=== PATIENT | female | born 1955 | race Caucasian/White ===

== ENCOUNTER 2017-11-11 18:39 | Inpatient (IN) | payer SELFPAY ==
[~2017-11-11] VITALS: Ht 160 cm; Wt 79.9 kg
[2017-11-11] VITALS (18 sets, daily range): BP systolic 83–172; BP diastolic 43–85; PULSE 50–82; RESP 10–18; TEMP 99.2; O2SAT 86–99
[~2017-11-11 18:39] MED LIST: ATEN-100 PO; CLON.1 PO; ESTR1TAB12 PO; LISI10TA PO
[2017-11-11] MEDS ORDERED: HYDROmorphone HCL PF 2 MG/ML VIAL IV PUSH ONE (19:00)
[2017-11-11] MEDS ORDERED: ONDANSETRON HCL 4 MG/2 ML VIAL IV PUSH ONE (19:00)
[2017-11-11] MEDS ORDERED: SODIUM CHLOR 0.9% 1000 ML INJ 1,000 ML IV SCH (19:00)
[2017-11-11] MEDS ORDERED: ESTR1TAB PO (19:02)
[2017-11-11] MEDS ORDERED: LISI-515 PO (19:02)
[2017-11-11] MEDS ORDERED: MEDR2.5 PO (19:02)
[2017-11-11] MEDS ORDERED: TRIA37.5 PO (19:02)
--- NOTE | 2017-11-11 19:02 | PD ---
HPI Chief Complaint: Chest Pain Time Seen by Provider: 18:49 Travel History International Travel<30 days: Yes Contact w/Intl Traveler<30days: Yes Name of Country Traveled to: [place] Traveled to known affect area: No History of Present Illness HPI 62-year-old female complains of chest pain and headache. Patient has history of recurrent headache and this is not new. Patient complains of chest pain started about 2 hours prior to arrival. Patient stated chest pain burning pain across the chest with radiation to the back. Patient denies any coughing congestion fever chills. Patient states that she has nausea and diaphoresis with the pain. Patient denies any palpitation. Patient has history hypertension. Patient denies history of diabetes or hyperlipidemia. Patient is a non-smoker. Patient has family history of heart disease. On a scale of 1- 10 the pain is an 8. PFSH Past Medical History Diminished Hearing: No Fibromyalgia: Yes Hypertension: Yes Menopausal: Yes Past Surgical History Section: Yes Hysterectomy: Yes (L OOPHORECTOMY) Other Surgery: Yes (MELANOMA REMOVAL, RUE LYMPHNODE REMOVAL) Social History Alcohol Use: No Tobacco Use: No Substance Use: No Allergies-Medications (Allergen,Severity, Reaction): Coded Allergies: Sulfa (Sulfonamide Antibiotics) (Unverified Allergy, Severe, HIVES, 11/11/17 ) codeine (Unverified Allergy, Severe, HIVES, 11/11/17) erythromycin base (Verified Allergy, Severe, Nausea/Vomiting, 11/11/17) hydromorphone (Verified Allergy, Severe, Respiratory Failure, 11/11/17) Reported Meds & Prescriptions Reported Meds & Active Scripts Active Reported Estradiol 1 Mg Tab 1 Mg PO DAILY Provera (Medroxyprogesterone Acetate) 2.5 Mg Tab 2.5 Mg PO DAILY Start day 16 Triamterene-Hydrochlorothiazide 37.5-25 Mg Tab 1 Tab PO DAILY Lisinopril 20 Mg Tab 20 Mg PO DAILY Review of Systems General / Constitutional: No: Fever Eyes: No: Visual changes HENT: Positive: Headaches Cardiovascular: Positive: Chest Pain or Discomfort Respiratory: No: Shortness of Breath Gastrointestinal: No: Abdominal Pain Genitourinary: No: Dysuria Musculoskeletal: No: Pain Skin: No Rash Neurologic: No: Weakness Psychiatric: No: Depression Endocrine: No: Polydipsia Hematologic/Lymphatic: No: Easy Bruising Physical Exam Narrative GENERAL: Well-nourished, well-developed patient. SKIN: Focused skin assessment warm/dry. HEAD: Normocephalic. EYES: No scleral icterus. No injection or drainage. NECK: Supple, trachea midline. No JVD or lymphadenopathy. CARDIOVASCULAR: Regular rate and rhythm without murmurs, gallops, or rubs. RESPIRATORY: Breath sounds equal bilaterally. No accessory muscle use. GASTROINTESTINAL: Abdomen soft, non-tender, nondistended. MUSCULOSKELETAL: No cyanosis, or edema. BACK: Nontender without obvious deformity. No CVA tenderness. Neurologic exam normal. Data Data Last Documented VS Vital Signs Date Time Temp Pulse Resp B/P (MAP) Pulse Ox O2 Delivery O2 Flow Rate FiO2 11/11/17 21:11 60 16 91/49 (63) 98 Nasal Cannula 2.00 11/11/17 18:55 99.2 Orders Orders Electrocardiogram (11/11/17 18:55) Complete Blood Count With Diff (11/11/17 18:55) Comprehensive Metabolic Panel (11/11/17 18:55) Creatine Kinase (Cpk) (11/11/17 18:55) Troponin I (11/11/17 18:55) Prothrombin Time / Inr (Pt) (11/11/17 18:55) Act Partial Throm Time (Ptt) (11/11/17 18:55) Lipase (11/11/17 18:55) Chest, Single Ap (11/11/17 18:55) Iv Access Insert/Monitor (11/11/17 18:55) Ecg Monitoring (11/11/17 18:55) Oximetry (11/11/17 18:55) Cta Thor Abd Aorta W Iv C W3d (11/11/17 ) Sodium Chlor 0.9% 1000 Ml Inj (Ns 1000 M (11/11/17 19:00) Hydromorphone Pf Inj (Dilaudid Pf Inj) (11/11/17 19:00) Ondansetron Inj (Zofran Inj) (11/11/17 19:00) Diphenhydramine Inj (Benadryl Inj) (11/11/17 19:30) Methylprednisolone So Succ Inj (Solumedr (11/11/17 19:30) Famotidine Inj (Pepcid Inj) (11/11/17 19:30) Sodium Chloride 0.9% Flush (Ns Flush) (11/11/17 19:30) Methylprednisolone So Succ Inj (Solumedr (11/11/17 19:26) Iohexol 350 Inj (Omnipaque 350 Inj) (11/11/17 20:24) Sodium Chlor 0.9% 1000 Ml Inj (Ns 1000 M (11/11/17 20:45) Admit Order (Ed Use Only) (11/11/17 21:10) Labs Laboratory Tests Test 11/11/17 19:11 White Blood Count 5.4 TH/MM3 Red Blood Count 4.91 MIL/MM3 Hemoglobin 13.6 GM/DL Hematocrit 41.6 % Mean Corpuscular Volume 84.6 FL Mean Corpuscular Hemoglobin 27.6 PG Mean Corpuscular Hemoglobin Concent 32.6 % Red Cell Distribution Width 12.9 % Platelet Count 262 TH/MM3 Mean Platelet Volume 8.1 FL Neutrophils (%) (Auto) 74.2 % Lymphocytes (%) (Auto) 21.5 % Monocytes (%) (Auto) 4.0 % Eosinophils (%) (Auto) 0.1 % Basophils (%) (Auto) 0.2 % Neutrophils # (Auto) 3.9 TH/MM3 Lymphocytes # (Auto) 1.2 TH/MM3 Monocytes # (Auto) 0.2 TH/MM3 Eosinophils # (Auto) 0.0 TH/MM3 Basophils # (Auto) 0.0 TH/MM3 CBC Comment DIFF FINAL Differential Comment Prothrombin Time 10.0 SEC Prothromb Time International Ratio 1.0 RATIO Activated Partial Thromboplast Time 26.5 SEC Blood Urea Nitrogen 18 MG/DL Creatinine 0.78 MG/DL Random Glucose 116 MG/DL Total Protein 6.5 GM/DL Albumin 3.0 GM/DL Calcium Level 7.8 MG/DL Alkaline Phosphatase 53 U/L Aspartate Amino Transf (AST/SGOT) 13 U/L Alanine Aminotransferase (ALT/SGPT) 16 U/L Total Bilirubin 0.3 MG/DL Sodium Level 136 MEQ/L Potassium Level 3.3 MEQ/L Chloride Level 103 MEQ/L Carbon Dioxide Level 23.8 MEQ/L Anion Gap 9 MEQ/L Estimat Glomerular Filtration Rate 75 ML/MIN Total Creatine Kinase 41 U/L Troponin I LESS THAN 0.02 NG/ML Lipase 101 U/L [facility] Medical Decision Making Medical Screen Exam Complete: Yes Emergency Medical Condition: Yes Interpretation(s) 1901 p.m. EKG shows sinus rhythm nonspecific ST-T wave change. 2041 PM. Last Impressions Chest X-Ray 11/11/171854 Signed Impressions: Service Date/Time: Saturday, November 11, 2017 19:36 - CONCLUSION: 1. Linear atelectasis or scarring at the lung bases. No effusion or pneumothorax. Kyler Reynaga MD 2041 PM. CBC within normal limits. Potassium 3.3. Cardiac enzymes are normal. Differential Diagnosis Differential diagnosis including musculoskeletal, angina, AK, PE, pneumothorax, aortic dissection. Narrative Course 62-year-old female with chest pain radiates to the back. Normal saline solution 1 25 cc an hour. Dilaudid 0.5 mg IV given. I was informed by my nurse that patient was bradycardic and apneic after given IV Dilaudid. Patient also has red rash on the face and upper chest. Ambu bag was used for a short time until patient regained consciousness completely. Patient regained blood pressure and pulse. Solu-Medrol 125 mg IV given. Benadryl 25 g IV given. Critical Care Narrative Aggregate critical care time was 60 minutes. Time to perform other separately billable procedures was not included in the critical care time. My time did not include minutes spent treating any other patients simultaneously or on activities that did not directly contribute to the patient's treatment. The services I provided to this patient were to treat and/or prevent clinically significant deterioration that could result in: I provided critical care services requiring my management, as noted below: Chart data review, documentation time, medication orders and management, vital sign assessments/reviewing monitor data, ordering and reviewing lab tests, ordering and interpreting/reviewing x-rays and diagnostic studies, care of the patient and discussion of the patient with the admitting physicians. Procedures Procedure Narrative CENTRAL VENOUS LINE: The site was prepped with Betadine and sterilely draped. It was infiltrated with 1% lidocaine plain. The deep vein was cannulated using normal Seldinger technique. A triple lumen central line was placed in the right femoral vein site and secured with simple interrupted suture. The site was sterilely dressed. The patient tolerated the procedure well. Diagnosis Primary Impression: Chest pain Qualified Codes: R07.9 - Chest pain, unspecified Additional Impression: Allergic reaction Qualified Codes: T78.40XA - Allergy, unspecified, initial encounter Admitting Information Admitting Physician Requests: Admit Van Casillas MD Nov 11, 2017 19:02
[2017-11-11 19:17] LABS: AUTOMATED NEUTROPHIL # 3.9 TH/MM3 (1.8-7.7); BASOPHIL % 0.2 % (0.0-2.0); EOSINOPHIL % 0.1 % (0.0-4.0); HEMATOCRIT 41.6 % (35.0-46.0); HEMOGLOBIN 13.6 GM/DL (11.6-15.3); LYMPH % 21.5 % (9.0-44.0); LYMPHOCYTE # 1.2 TH/MM3 (1.0-4.8); MEAN CELL VOLUME 84.6 FL (80.0-100.0); MEAN CORPUSCULAR HEMOGLOBIN 27.6 PG (27.0-34.0); MEAN CORPUSCULAR HGB CONC 32.6 % (32.0-36.0); MEAN PLATELET VOLUME 8.1 FL (7.0-11.0); MONOCYTE # 0.2 TH/MM3 (0-0.9); NEUT % 74.2 % (16.0-70.0); PLATELET COUNT 262 TH/MM3 (150-450); RED BLOOD COUNT 4.91 MIL/MM3 (4.00-5.30); RED CELL DISTRIBUTION WIDTH 12.9 % (11.6-17.2); WHITE BLOOD COUNT 5.4 TH/MM3 (4.0-11.0)
[2017-11-11 19:25] LABS: CHLORIDE 103 MEQ/L (98-107); SODIUM (NA) 136 MEQ/L (136-145)
[2017-11-11] MEDS ORDERED: methylPREDNISolone SOD SUCC 125 MG/2 ML VIAL ONE (19:26)
[2017-11-11 19:29] LABS: BICARBONATE 23.8 MEQ/L (21.0-32.0); BLOOD UREA NITROGEN 18 MG/DL (7-18); CALCIUM 7.8 MG/DL (8.5-10.1); GLUCOSE,RANDOM 116 MG/DL (74-106)
[2017-11-11] MEDS ORDERED: FAMOTIDINE 20 MG/2 ML VIAL IV PUSH ONE (19:30)
[2017-11-11] MEDS ORDERED: diphenhydrAMINE HCL 50 MG/ML VIAL IVP ONE (19:30)
[2017-11-11] MEDS ORDERED: methylPREDNISolone SOD SUCC 125 MG/2 ML VIAL IV PUSH ONE (19:30)
[2017-11-11] MEDS ORDERED: SODIUM CHLORIDE 0.9% FLUSH 10 ML FLUSH IV FLUSH PRN ×2 (19:30→21:15)
[2017-11-11 19:32] LABS: ALT (GPT) 16 U/L (10-53); AST (GOT) 13 U/L (15-37); CREATININE 0.78 MG/DL (0.50-1.00); GLOMERULAR FILTRATION RATE 75 ML/MIN (>89)
[2017-11-11 19:33] LABS: TOTAL BILIRUBIN ADULT 0.3 MG/DL (0.2-1.0)
[2017-11-11 19:34] LABS: TOTAL PROTEIN 6.5 GM/DL (6.4-8.2)
[2017-11-11 19:35] LABS: ALKALINE PHOSPHATASE 53 U/L (45-117)
[2017-11-11 19:37] LABS: TROPONIN I LESS THAN 0.02 NG/ML (0.02-0.05)
[2017-11-11] MEDS ORDERED: IOHEXOL 350 MG/ML 10 ML VIAL (for RAD DIAG) IVCONTRAST ONE (20:24)
--- NOTE | 2017-11-11 20:29 | RADRPT ---
EXAM DATE/TIME: 11/11/2017 19:36 [facility] COMPARISON: CHEST SINGLE AP, September 16, 2014, 19:05. INDICATIONS : Chest pain. Nausea. MEDICAL HISTORY : Hypertension. SURGICAL HISTORY : None. ENCOUNTER: Initial ACUITY: 1 day PAIN SCORE: 8/10 LOCATION: Bilateral chest FINDINGS: A single view of the chest demonstrates the lungs to be symmetrically aerated without evidence of mas s, infiltrate or effusion. Linear atelectasis or scarring at the lung bases. The cardiomediastinal co ntours are unremarkable. Osseous structures are intact. CONCLUSION: 1. Linear atelectasis or scarring at the lung bases. No effusion or pneumothorax. Kyler Renyaga MD on November 11, 2017 at 20:26 Board Certified Radiologist. This report was verified electronically.
[2017-11-11] MEDS ORDERED: SODIUM CHLOR 0.9% 1000 ML INJ 1,000 ML IV ONE ×2 (20:45→21:30)
--- NOTE | 2017-11-11 20:51 | RADRPT ---
EXAM DATE/TIME: 11/11/2017 19:56 [facility] COMPARISON: No previous studies available for comparison. INDICATIONS : Chest pain radiating to back. IV CONTRAST: 95 cc Omnipaque 350 (iohexol) IV RADIATION DOSE: 17.12 CTDIvol (mGy) MEDICAL HISTORY : Hypercholesterolemia. Hypertension. SURGICAL HISTORY : Hysterectomy. section. ENCOUNTER: Initial ACUITY: 1 day PAIN SCALE: 5/10 LOCATION: chest TECHNIQUE: Volumetric scanning was performed using a multi-row detector CT scanner. The data was post processed with a variety of visualization algorithms including full volume maximum intensity projection, multi -planar sliding thin slab reformation, curved planar reformation, and surface rendering techniques. Using automated exposure control and adjustment of the mA and/or kV according to patient size, radiat ion dose was kept as low as reasonably achievable to obtain optimal diagnostic quality images. DICOM format image data is available electronically for review and comparison. FINDINGS: LUNGS: There is no consolidation or pneumothorax. No concerning pulmonary nodule is visualized. No pleural fluid is present. MEDIASTINUM: No abnormally enlarged lymph nodes by CT criteria. No axillary or hilar abnormalities are identified. ABDOMEN: The liver and spleen are free of focal defects. The gallbladder and pancreas demonstrate no abnormali ty. The adrenal glands are normal. The kidneys demonstrate no evidence of solid renal mass or hydrone phrosis. No free fluid or abdominal masses are identified. No para-aortic adenopathy is seen. PELVIS: No evidence of free fluid or pelvic mass. No abnormally enlarged inguinal or retroperitoneal lymph no shreya are present. The bladder is unremarkable. THORACIC AORTA: The thoracic aortic root is normal with normal branching of the great vessels. There is no evidence of aneurysm or dissection. ABDOMINAL AORTA: The aorta is normal in caliber without aneurysm or dissection. The renal arteries are patent bilater ally. The proximal celiac and superior mesenteric arteries are patent and normal in diameter. PELVIC VESSELS: The internal iliac and external iliac vessels are patent without aneurysm or stenosis. CONCLUSION: 1. No acute findings. Specifically no aortic dissection or aneurysm. Mild coronary calcifications. De pendent atelectasis in the lungs. Fatty liver. Colonic diverticulosis. Kyler Reynaga MD on November 11, 2017 at 20:47 Board Certified Radiologist. This report was verified electronically.
[2017-11-11] MEDS ORDERED: ACETAMINOPHEN 500 MG CPLT PO PRN (21:15)
[2017-11-11] MEDS ORDERED: POTASSIUM CHLORIDE 20 MEQ CONTROLLED RELEASE TAB PO ONE (21:15)
[2017-11-11] MEDS ORDERED: NOREPINEPHRINE-DEXTROSE DRIP 250 ML IV PRN (23:00)
[2017-11-11] MEDS ORDERED: TERBUTALINE INJ 1 MG/ML AMP SQ PRN (23:00)
[2017-11-11 23:55] LABS: LACTIC ACID SEPSIS PROTOCOL 3.1 mmol/L (0.4-2.0)
[2017-11-12] VITALS (44 sets, daily range): BP systolic 82–139; BP diastolic 45–74; PULSE 42–69; RESP 10–25; TEMP 97.7–98.1; O2SAT 93–100
[2017-11-12] MEDS ORDERED: SENNOSIDES 8.6 MG TAB PO PRN
[2017-11-12] MEDS ORDERED: MAGNESIUM OXIDE 400 MG TAB PO PRN
[2017-11-12] MEDS ORDERED: POTASSIUM PHOSPHATE INJ 30 MMOL in SODIUM CHLOR 0.9% 250 ML INJ 250 ML IV PRN ×2
[2017-11-12] MEDS ORDERED: SODIUM PHOSPHATE INJ 30 MMOL in SODIUM CHLOR 0.9% 250 ML INJ 240 ML IV PRN ×2
[2017-11-12] MEDS ORDERED: SODIUM CHLOR 0.9% 1000 ML INJ 1,000 ML IV ONE ×2
[2017-11-12] MEDS ORDERED: POTASSIUM CHLORIDE 25 MEQ EFFERVESCENT TAB PO PRN
[2017-11-12] MEDS ORDERED: MORPHINE SULFATE 2 MG/ML SYRINGE IV PUSH PRN
[2017-11-12] MEDS ORDERED: POTASSIUM PHOSPHATE MONOBASIC 500 MG TAB PO PRN
[2017-11-12] MEDS ORDERED: TEMAZEPAM 15 MG CAP PO PRN
[2017-11-12] MEDS ORDERED: POTASSIUM CHLOR 40 MEQ PREMIX 100 ML IV PRN ×2
[2017-11-12] MEDS ORDERED: ACETAMINOPHEN 325 MG TAB PO PRN
[2017-11-12] MEDS ORDERED: POTASSIUM CHLOR 20 MEQ PREMIX 100 ML IV PRN ×2
[2017-11-12] MEDS ORDERED: MAGNESIUM SULFATE INJ 4 GM in SODIUM CHLORIDE 0.9% INJ 92 ML IV PRN ×2
[2017-11-12] MEDS ORDERED: MAGNESIUM SULFATE INJ 2 GM in SODIUM CHLORIDE 0.9% INJ 96 ML IV PRN ×2
[2017-11-12] MEDS ORDERED: LACTULOSE SYRUP 20 GM/30 ML CUP PO PRN
[2017-11-12] MEDS ORDERED: POTASSIUM PHOSPHATE MONOBASIC 500 MG TAB PO/TUBE PRN
[2017-11-12] MEDS ORDERED: SODIUM CHLORIDE 0.9% FLUSH 10 ML FLUSH IV FLUSH PRN
[2017-11-12] MEDS ORDERED: ONDANSETRON HCL 4 MG/2 ML VIAL IV PUSH PRN
[2017-11-12] MEDS ORDERED: BISACODYL 10 MG SUPP RECTAL PRN
[2017-11-12] MEDS ORDERED: RESP: ALBUTEROL 2.5 MG/IPRATROPIUM 0.5 MG NEB (PRN) INH
[2017-11-12] MEDS ORDERED: CHLORHEXIDINE GLUCONATE 2 % 1 PACK (2 CLOTHS) TOP PRN
[2017-11-12] MEDS ORDERED: MISCELLANEOUS NURSING INFORMATION XX SCH
[2017-11-12] MEDS ORDERED: MAGNESIUM HYDROXIDE SUSP 30 ML CUP PO PRN
[2017-11-12 01:49] LABS: TROPONIN I LESS THAN 0.02 NG/ML (0.02-0.05)
[2017-11-12] MEDS: SODIUM CHLOR 0.9% 1000 ML INJ 1,000 ML IV SCH ×4 (01:50→19:41)
[2017-11-12] MEDS: ENOXAPARIN SODIUM 40 MG/0.4 ML SYRINGE SQ SCH (02:12)
[2017-11-12] MEDS: traMADol HCL 50 MG TAB PO PRN ×2 (02:34→19:38)
[2017-11-12] MEDS: CHLORHEXIDINE GLUCONATE 2 % 1 PACK (2 CLOTHS) TOP SCH (04:00)
[2017-11-12 05:33] LABS: AUTOMATED NEUTROPHIL # 4.5 TH/MM3 (1.8-7.7); BASOPHIL % 0.1 % (0.0-2.0); EOSINOPHIL # 0.1 TH/MM3 (0-0.4); EOSINOPHIL % 1.1 % (0.0-4.0); HEMATOCRIT 35.7 % (35.0-46.0); HEMOGLOBIN 11.9 GM/DL (11.6-15.3); LYMPH % 12.3 % (9.0-44.0); LYMPHOCYTE # 0.7 TH/MM3 (1.0-4.8); MEAN CELL VOLUME 85.6 FL (80.0-100.0); MEAN CORPUSCULAR HEMOGLOBIN 28.5 PG (27.0-34.0); MEAN CORPUSCULAR HGB CONC 33.2 % (32.0-36.0); MEAN PLATELET VOLUME 8.2 FL (7.0-11.0); MONOCYTE # 0.1 TH/MM3 (0-0.9); NEUT % 85.5 % (16.0-70.0); PLATELET COUNT 269 TH/MM3 (150-450); RED BLOOD COUNT 4.17 MIL/MM3 (4.00-5.30); RED CELL DISTRIBUTION WIDTH 12.7 % (11.6-17.2); WHITE BLOOD COUNT 5.4 TH/MM3 (4.0-11.0)
[2017-11-12 05:39] LABS: PROTHROMBIN TIME - PATIENT 10.5 SEC (9.8-11.6)
[2017-11-12 06:22] LABS: ALBUMIN 2.5 GM/DL (3.4-5.0); BICARBONATE 20.5 MEQ/L (21.0-32.0); CREATININE 0.6 MG/DL (0.50-1.00); MAGNESIUM 1.6 MG/DL (1.5-2.5); PHOSPHORUS 2.1 MG/DL (2.5-4.9); TOTAL BILIRUBIN ADULT 0.2 MG/DL (0.2-1.0); TOTAL PROTEIN 5.5 GM/DL (6.4-8.2)
[2017-11-12 06:24] LABS: CALCIUM 6.3 MG/DL (8.5-10.1)
--- NOTE | 2017-11-12 06:31 | HHI.HP ---
[facility] Service Critical Care Medicine Primary Care Physician Toñito Weiner MD Admission Diagnosis Chest pain. Allergic reaction. Diagnosis: Chief Complaint: Chest pain Travel History International Travel<30 Days: Yes Contact w/Intl Traveler <30 Da: Yes Name of Country Traveled to: [facility] Traveled to Known Affected Are: No History of Present Illness This 62-year-old otherwise healthy woman presented to the [facility] emergency department with chest heaviness and pain radiating to her back. Earlier in the day she had had diarrhea and some generalized abdominal pain. This specific episode of chest pain was initiated immediately following a meal of cereal. She was evaluated in the emergency department and 3 subsequent sets of cardiac markers were negative. The remainder of her laboratory work is benign with the exception of a elevated lactic acid level consistent with her diarrhea and moderate dehydration. Her EKG is normal with the exception of bradycardia at 49 bpm at one point. She appeared quite sensitive to intravenous Dilaudid and became temporarily unresponsive after a 0.5 mg intravenous dose. This was given in the emergency department and she rapidly recovered. Her long-term history is significant for a generalized edema which has been evaluated by her primary care physician. The patient has chronic back pain and fibromyalgia but neither of those problems appear particularly troublesome at this time. Review of Systems Constitutional: DENIES: Diaphoretic episodes, Fatigue, Fever, Weight gain, Weight loss, Chills, Dizziness, Change in appetite, Night Sweats Eyes: DENIES: Blurred vision, Diplopia, Eye inflammation, Eye pain, Vision loss , Photosensitivity, Double Vision Cardiovascular: COMPLAINS OF: Chest pain Gastrointestinal: COMPLAINS OF: Diarrhea Musculoskeletal: COMPLAINS OF: Back pain Neurologic: DENIES: Abnormal gait, Headache, Localized weakness, Paresthesias, Seizures, Speech Problems, Tremor, Poor Balance Past Family Social History Allergies: Coded Allergies: Sulfa (Sulfonamide Antibiotics) (Unverified Allergy, Severe, HIVES, 11/11/17 ) codeine (Unverified Allergy, Severe, HIVES, 11/11/17) erythromycin base (Verified Allergy, Severe, Nausea/Vomiting, 11/11/17) hydromorphone (Verified Allergy, Severe, Respiratory Failure, 11/11/17) Past Medical History Past Medical History Diminished Hearing: No Fibromyalgia: Yes Hypertension: Yes Menopausal: Yes Past Surgical History Section: Yes Hysterectomy: Yes (L OOPHORECTOMY) Other Surgery: Yes (MELANOMA REMOVAL, RUE LYMPH NODE REMOVAL) Social History Alcohol Use: No Tobacco Use: No Substance Use: No Allergies-Medications Allergies-Medications (Allergen,Severity, Reaction): Coded Allergies: Sulfa (Sulfonamide Antibiotics) (Unverified Allergy, Severe, HIVES, 11/11/17 ) codeine (Unverified Allergy, Severe, HIVES, 11/11/17) erythromycin base (Verified Allergy, Severe, Nausea/Vomiting, 11/11/17) hydromorphone (Verified Allergy, Severe, Respiratory Failure, 11/11/17) Reported Meds & Prescriptions Reported Meds & Active Scripts Active Reported Estradiol 1 Mg Tab 1 Mg PO DAILY Provera (Medroxyprogesterone Acetate) 2.5 Mg Tab 2.5 Mg PO DAILY Start day 16 Triamterene-Hydrochlorothiazide 37.5-25 Mg Tab 1 Tab PO DAILY Lisinopril 20 Mg Tab 20 Mg PO DAILY Physical Exam Vital Signs Vital Signs Date Time Temp Pulse Resp B/P (MAP) Pulse Ox O2 Delivery O2 Flow Rate FiO2 11/12/17 06:15 52 18 119/66 (83) 98 11/12/17 06:00 48 11/12/17 06:00 52 20 123/73 (90) 99 11/12/17 05:45 44 15 105/60 (75) 100 11/12/17 05:30 42 13 106/53 (70) 100 11/12/17 05:25 44 94/45 11/12/17 05:15 42 13 94/45 (61) 99 11/12/17 05:00 44 13 90/48 (62) 99 11/12/17 04:30 97.7 46 12 94/53 (67) 100 11/12/17 04:15 46 13 97/50 (66) 100 11/12/17 04:00 46 13 94/52 (66) 100 11/12/17 04:00 44 11/12/17 03:45 48 12 102/53 (69) 100 11/12/17 03:30 48 13 109/53 (71) 100 11/12/17 03:15 48 14 103/56 (72) 100 11/12/17 02:45 48 14 90/52 (65) 99 11/12/17 02:30 48 10 105/61 (76) 100 11/12/17 02:15 48 15 92/53 (66) 99 11/12/17 02:06 48 15 106/58 (74) 99 11/12/17 02:00 48 11/12/17 01:57 48 15 96/57 (70) 98 11/12/17 01:54 50 14 98/58 (71) 97 11/12/17 01:47 52 14 82/49 (60) 98 11/12/17 01:47 52 82/49 11/12/17 01:34 56 14 85/49 (61) 98 11/12/17 01:31 56 16 86/51 (63) 96 11/12/17 01:00 98 Nasal Cannula 2.00 11/12/17 01:00 58 15 98 11/12/17 00:15 69 11/12/17 00:09 98.1 63 25 112/58 (76) 97 11/12/17 00:09 98.1 63 25 112/58 (76) 97 11/12/17 00:08 11/11/17 23:14 64 14 93/49 (64) 98 Nasal Cannula 2.00 11/11/17 22:45 64 14 100/53 (69) 98 Nasal Cannula 2.00 11/11/17 22:37 64 14 117/64 (81) 98 Nasal Cannula 2.00 11/11/17 22:15 66 14 96/51 (66) 98 Nasal Cannula 2.00 11/11/17 22:00 60 14 84/44 (57) 98 Nasal Cannula 2.00 11/11/17 21:43 62 14 91/52 (65) 97 Nasal Cannula 2.00 11/11/17 21:26 58 14 83/47 (59) 98 Nasal Cannula 2.00 11/11/17 21:15 62 16 97/43 (61) 97 Nasal Cannula 2.00 11/11/17 21:11 60 16 91/49 (63) 98 Nasal Cannula 2.00 11/11/17 20:56 65 16 93/57 (69) 97 Nasal Cannula 2.00 11/11/17 20:44 68 16 93/54 (67) 96 Nasal Cannula 2.00 11/11/17 20:26 68 16 103/48 (66) 95 Nasal Cannula 2.00 11/11/17 20:11 66 14 110/67 (81) 93 Nasal Cannula 2.00 11/11/17 19:44 66 14 127/65 (85) 99 Nasal Cannula 2.00 11/11/17 19:38 18 11/11/17 19:29 67 14 166/85 (112) 98 Nasal Cannula 4.00 11/11/17 19:26 50 10 166/85 (112) 86 Non-Rebreather 15.00 11/11/17 18:59 (112) 11/11/17 18:58 97 Room Air 11/11/17 18:55 99.2 82 18 172/83 (112) 97 Room Air 11/11/17 18:55 Room Air Physical Exam General: Calm appearing woman in no acute distress Head: Atraumatic normal Neck: Supple airway widely patent Lungs: Clear bilaterally without wheezes or other adventitious sounds. Comfortable respiratory pattern Heart: Normal S1-S2. Regular rate at 64. No murmur or rub. No jugular venous distention Abdomen: Soft, nondistended, no peritoneal irritation or guarding. Bowel sounds active Extremities: Warm, well perfused, chronic trace edema all 4 limbs distally. Neuro: Oriented 3 with good memory. Motor and sensory function grossly intact. Moves 4 extremities with 5/5 strength. Laboratory Laboratory Tests Test 11/11/17 19:11 11/11/17 23:15 11/12/17 00:37 11/12/17 01:10 White Blood Count 5.4 Red Blood Count 4.91 Hemoglobin 13.6 Hematocrit 41.6 Mean Corpuscular Volume 84.6 Mean Corpuscular Hemoglobin 27.6 Mean Corpuscular Hemoglobin Concent 32.6 Red Cell Distribution Width 12.9 Platelet Count 262 Mean Platelet Volume 8.1 Neutrophils (%) (Auto) 74.2 Lymphocytes (%) (Auto) 21.5 Monocytes (%) (Auto) 4.0 Eosinophils (%) (Auto) 0.1 Basophils (%) (Auto) 0.2 Neutrophils # (Auto) 3.9 Lymphocytes # (Auto) 1.2 Monocytes # (Auto) 0.2 Eosinophils # (Auto) 0.0 Basophils # (Auto) 0.0 CBC Comment DIFF FINAL Differential Comment Prothrombin Time 10.0 Prothromb Time International Ratio 1.0 Activated Partial Thromboplast Time 26.5 Blood Urea Nitrogen 18 Creatinine 0.78 Random Glucose 116 Total Protein 6.5 Albumin 3.0 Calcium Level 7.8 Alkaline Phosphatase 53 Aspartate Amino Transf (AST/SGOT) 13 Alanine Aminotransferase (ALT/SGPT) 16 Total Bilirubin 0.3 Sodium Level 136 Potassium Level 3.3 Chloride Level 103 Carbon Dioxide Level 23.8 Anion Gap 9 Estimat Glomerular Filtration Rate 75 Total Creatine Kinase 41 31 Troponin I LESS THAN 0.02 LESS THAN 0.02 Lipase 101 Lactic Acid Level 3.1 Nasal Screen MRSA (PCR) MRSA NOT DETECTED Test 11/12/17 01:25 11/12/17 05:00 Lactic Acid Level 3.3 White Blood Count 5.4 Red Blood Count 4.17 Hemoglobin 11.9 Hematocrit 35.7 Mean Corpuscular Volume 85.6 Mean Corpuscular Hemoglobin 28.5 Mean Corpuscular Hemoglobin Concent 33.2 Red Cell Distribution Width 12.7 Platelet Count 269 Mean Platelet Volume 8.2 Neutrophils (%) (Auto) 85.5 Lymphocytes (%) (Auto) 12.3 Monocytes (%) (Auto) 1.0 Eosinophils (%) (Auto) 1.1 Basophils (%) (Auto) 0.1 Neutrophils # (Auto) 4.5 Lymphocytes # (Auto) 0.7 Monocytes # (Auto) 0.1 Eosinophils # (Auto) 0.1 Basophils # (Auto) 0.0 CBC Comment DIFF FINAL Differential Comment Prothrombin Time 10.5 Prothromb Time International Ratio 1.0 Activated Partial Thromboplast Time 27.5 Blood Urea Nitrogen 11 Creatinine 0.60 Random Glucose 162 Total Protein 5.5 Albumin 2.5 Calcium Level 6.3 Phosphorus Level 2.1 Magnesium Level 1.6 Alkaline Phosphatase 43 Aspartate Amino Transf (AST/SGOT) 15 Alanine Aminotransferase (ALT/SGPT) 16 Total Bilirubin 0.2 Sodium Level 140 Potassium Level 3.5 Chloride Level 111 Carbon Dioxide Level 20.5 Anion Gap 9 Estimat Glomerular Filtration Rate 102 Protein Corrected Calcium 7.0 Troponin I LESS THAN 0.02 Result Diagram: 11/12/17 0500 11/12/17 0500 Caprini VTE Risk Assessment Caprini VTE Risk Assessment: Mod/High Risk (score >= 2) Caprini Risk Assessment Model Point Value = 1 Point Value = 2 Point Value = 3 Point Value = 5 Age 41-60 Minor surgery BMI > 25 kg/m2 Swollen legs Varicose veins or History of unexplained or recurrent spontaneous Oral contraceptives or hormone replacement Sepsis (< 1 month) Serious lung disease, including pneumonia (< 1 month) Abnormal pulmonary function Acute myocardial infarction Congestive heart failure (< 1 month) History of inflammatory bowel disease Medical patient at bed rest Age 61-74 Arthroscopic surgery Major open surgery (> 45 min) Laparoscopic surgery (> 45 min) Malignancy Confined to bed (> 72 hours) Immobilizing plaster cast Central venous access Age >= 75 History of VTE Family history of VTE Factor V Leiden Prothrombin [id number] Lupus anticoagulant Anticardiolipin antibodies Elevated serum homocysteine Heparin-induced thrombocytopenia Other congenital or acquired thrombophilia Stroke (< 1 month) Elective arthroplasty Hip, pelvis, or leg fracture Acute spinal cord injury (< 1 month) Prophylaxis Regimen Total Risk Factor Score Risk Level Prophylaxis Regimen 0-1 Low Early ambulation 2 Moderate Order ONE of the following: *Sequential Compression Device (SCD) *Heparin 5000 units SQ BID 3-4 Higher Order ONE of the following medications: *Heparin 5000 units SQ TID *Enoxaparin/Lovenox 40 mg SQ daily (WT < 150 kg, CrCl > 30 mL/min) *Enoxaparin/Lovenox 30 mg SQ daily (WT < 150 kg, CrCl > 10-29 mL/min) *Enoxaparin/Lovenox 30 mg SQ BID (WT < 150 kg, CrCl > 30 mL/min) AND/OR *Sequential Compression Device (SCD) 5 or more Highest Order ONE of the following medications: *Heparin 5000 units SQ TID (Preferred with Epidurals) *Enoxaparin/Lovenox 40 mg SQ daily (WT < 150 kg, CrCl > 30 mL/min) *Enoxaparin/Lovenox 30 mg SQ daily (WT < 150 kg, CrCl > 10-29 mL/min) *Enoxaparin/Lovenox 30 mg SQ BID (WT < 150 kg, CrCl > 30 mL/min) AND *Sequential Compression Device (SCD) Assessment and Plan Assessment and Plan Assessment: 1. Chest pain. 2. Diarrhea 3. Mild dehydration. 4. Asymptomatic diverticulosis. 5. Coronary calcification Plan: 1. And Dilaudid to allergy list. 2. Recheck lactic acid level 3. Make arrangements for outpatient cardiac and gallbladder workup. Overall impression: It appears this woman became dehydrated after a bout of diarrhea. The sudden development of epigastric pain following ingestion of cereal with milk raises the specter of gallbladder provocation. This morning she appears well hydrated and well perfused, asymptomatic. Cardiac workup an appointment can be performed as an outpatient. Same for a GI workup concerning her gallbladder. I will repeat one more lactic acid level to assure that the dehydration is completely resolved. Low calcium suspicious for pancreatitis but lipase normal. I will transfer to hospitalist service. Aston Stephens MD Nov 12, 2017 06:31
--- NOTE | 2017-11-12 07:40 | EKG ---
Date Performed: 11/12/2017 Time Performed: 01:05:22 PTAGE: 62 years EKG: Sinus rhythm MARKED LEFT AXIS DEVIATION LOW QRS VOLTAGE IN PRECORDIAL LEADS ABNORMAL ECG PREVIOUS TRACING : 11/11/2017 18.48 DOCTOR: Joel Lee Interpretating Date/Time 11/12/2017 07:40:12
--- NOTE | 2017-11-12 08:03 | EKG ---
Date Performed: 11/11/2017 Time Performed: 18:48:19 PTAGE: 62 years EKG: Sinus rhythm MARKED LEFT AXIS DEVIATION PATTERN CONSISTENT WITH PULMONARY DISEASE ABNORMAL ECG INTERPRETATION BAS ED ON A DEFAULT AGE OF 40 YEARS NO PREVIOUS TRACING DOCTOR: Joel Lee Interpretating Date/Time 11/12/2017 08:02:31
[2017-11-12] MEDS ORDERED: SODIUM CHLORIDE 0.9% FLUSH 10 ML FLUSH IV FLUSH SCH (09:00)
[2017-11-12] MEDS: DOCUSATE SODIUM 50 MG/SENNA 8.6 MG TAB PO SCH ×2 (09:00→19:38)
[2017-11-12] MEDS: SODIUM CHLORIDE 0.9% FLUSH 10 ML FLUSH IV FLUSH SCH ×2 (09:00→19:42)
[2017-11-12] MEDS: FAMOTIDINE 20 MG TAB PO SCH ×2 (09:13→19:37)
[2017-11-12] MEDS: ESTRADIOL 1 MG TAB PO SCH (09:14)
[2017-11-12 10:27] LABS: PHOSPHORUS 2.6 MG/DL (2.5-4.9)
[2017-11-12 10:31] LABS: TROPONIN I LESS THAN 0.02 NG/ML (0.02-0.05)
--- NOTE | 2017-11-12 13:07 | EKG ---
Date Performed: 11/12/2017 Time Performed: 07:59:19 PTAGE: 62 years EKG: SINUS BRADYCARDIA LOW QRS VOLTAGE IN PRECORDIAL LEADS POSSIBLE ANTERIOR MYOCARDIAL INFARCTI ON BORDERLINE ECG PREVIOUS TRACING : 11/12/2017 05.44 DOCTOR: Joel Lee Interpretating Date/Time 11/12/2017 13:03:45
--- NOTE | 2017-11-12 13:09 | EKG ---
Date Performed: 11/12/2017 Time Performed: 05:44:52 PTAGE: 62 years EKG: SINUS BRADYCARDIA WITH SINUS ARRHYTHMIA BORDERLINE LEFT AXIS DEVIATION PROLONGED QT INTERVA L ABNORMAL ECG PREVIOUS TRACING : 11/12/2017 01.05 DOCTOR: Joel Lee Interpretating Date/Time 11/12/2017 13:05:56
[2017-11-13] VITALS (15 sets, daily range): BP systolic 92–131; BP diastolic 51–74; PULSE 52–64; RESP 12–23; TEMP 97.6–98.1; O2SAT 92
[2017-11-13] MEDS: ENOXAPARIN SODIUM 40 MG/0.4 ML SYRINGE SQ SCH (00:14)
[2017-11-13] MEDS: SODIUM CHLOR 0.9% 1000 ML INJ 1,000 ML IV SCH (03:46)
[2017-11-13] MEDS: CHLORHEXIDINE GLUCONATE 2 % 1 PACK (2 CLOTHS) TOP SCH (04:00)
[2017-11-13] MEDS: SODIUM CHLORIDE 0.9% FLUSH 10 ML FLUSH IV FLUSH SCH (09:00)
[2017-11-13] MEDS: DOCUSATE SODIUM 50 MG/SENNA 8.6 MG TAB PO SCH (09:09)
[2017-11-13] MEDS: FAMOTIDINE 20 MG TAB PO SCH (09:09)
[2017-11-13] MEDS: ESTRADIOL 1 MG TAB PO SCH (09:09)
--- NOTE | 2017-11-13 10:55 | HHI.DCPOC ---
Discharge Care Plan Diagnosis: (1) Allergic reaction Goals to Promote Your Health * To prevent worsening of your condition and complications * To maintain your health at the optimal level Directions to Meet Your Goals Take your medications as prescribed Follow your dietary instruction Follow activity as directed Keep your appointments as scheduled Take your immunizations and boosters as scheduled If your symptoms worsen call your PCP, if no PCP go to Urgent Care Center or Emergency Room Smoking is Dangerous to Your Health. Avoid second hand smoke Call the 24-hour hour crisis hotline for domestic abuse at Ladan Paul MD Nov 13, 2017 10:55
--- NOTE | 2017-11-13 10:57 | HHI.DS ---
Discharge Summary Admission Date Nov 11, 2017 at 21:11 Discharge Date: Nov 13, 2017 Admitting Diagnosis Chest pain. Allergic reaction. (1) Allergic reaction ICD Code: T78.40XA - Allergy, unspecified, initial encounter Status: Acute Procedures None Brief History - From Admission This 62-year-old otherwise healthy woman presented to the [facility] emergency department with chest heaviness and pain radiating to her back. Earlier in the day she had had diarrhea and some generalized abdominal pain. This specific episode of chest pain was initiated immediately following a meal of cereal. She was evaluated in the emergency department and 3 subsequent sets of cardiac markers were negative. The remainder of her laboratory work is benign with the exception of a elevated lactic acid level consistent with her diarrhea and moderate dehydration. Her EKG is normal with the exception of bradycardia at 49 bpm at one point. She appeared quite sensitive to intravenous Dilaudid and became temporarily unresponsive after a 0.5 mg intravenous dose. This was given in the emergency department and she rapidly recovered. Her long-term history is significant for a generalized edema which has been evaluated by her primary care physician. The patient has chronic back pain and fibromyalgia but neither of those problems appear particularly troublesome at this time. CBC/BMP: 11/12/17 0500 11/12/17 0500 Significant Findings Laboratory Tests Test 11/11/17 19:11 11/11/17 23:15 11/12/17 00:37 11/12/17 01:10 Neutrophils (%) (Auto) 74.2 % (16.0-70.0) Random Glucose 116 MG/DL (74-106) Albumin 3.0 GM/DL (3.4-5.0) Calcium Level 7.8 MG/DL (8.5-10.1) Aspartate Amino Transf (AST/SGOT) 13 U/L (15-37) Potassium Level 3.3 MEQ/L (3.5-5.1) Estimat Glomerular Filtration Rate 75 ML/MIN (>89) Troponin I LESS THAN 0.02 NG/ML LESS THAN 0.02 NG/ML Lactic Acid Level 3.1 mmol/L (0.4-2.0) Test 11/12/17 01:25 11/12/17 05:00 11/12/17 08:30 Lactic Acid Level 3.3 mmol/L (0.4-2.0) Neutrophils (%) (Auto) 85.5 % (16.0-70.0) Lymphocytes # (Auto) 0.7 TH/MM3 (1.0-4.8) Random Glucose 162 MG/DL (74-106) Total Protein 5.5 GM/DL (6.4-8.2) Albumin 2.5 GM/DL (3.4-5.0) Calcium Level 6.3 MG/DL (8.5-10.1) Phosphorus Level 2.1 MG/DL (2.5-4.9) Alkaline Phosphatase 43 U/L (45-117) Chloride Level 111 MEQ/L (98-107) Carbon Dioxide Level 20.5 MEQ/L (21.0-32.0) Protein Corrected Calcium 7.0 MG/DL (8.5-10.1) Troponin I LESS THAN 0.02 NG/ML LESS THAN 0.02 NG/ML Imaging Last Impressions Chest X-Ray 11/11/17 1855 Signed Impressions: Service Date/Time: Saturday, November 11, 2017 19:36 - CONCLUSION: 1. Linear atelectasis or scarring at the lung bases. No effusion or pneumothorax. Kyler Reynaga MD Aorta CTA 11/11/17 0000 Signed Impressions: Service Date/Time: Saturday, November 11, 2017 19:56 - CONCLUSION: 1. No acute findings. Specifically no aortic dissection or aneurysm. Mild coronary calcifications. Dependent atelectasis in the lungs. Fatty liver. Colonic diverticulosis. Kyler Reynaga MD PE at Discharge GENERAL: This is a well-nourished, well-developed patient, in no apparent distress. CARDIOVASCULAR: Regular rate and rhythm without murmurs, gallops, or rubs. RESPIRATORY: Clear to auscultation. Breath sounds equal bilaterally. No wheezes , rales, or rhonchi. GASTROINTESTINAL: Abdomen soft, non-tender, nondistended. Normal active bowel sounds MUSCULOSKELETAL: Extremities without clubbing, cyanosis, or edema. NEURO: Alert & Oriented x4 to person, place, time, situation. Moves all ext x4 Pt update on day of discharge Patient doing well today. Blood pressure issues are resolved. Discharge plan discussed with patient and VISUAL [employer]ECT[employer] ARTIST Hospital Course This patient is a 8-year-old female came in with some vague gastrointestinal discomfort and had some pain medication which resulted in what seems to be an allergic reaction. She was observed in the ICU with the critical care team and symptoms of hypotension flashing improved. Patient was discharged home Pt Condition on Discharge: Good Discharge Disposition: Discharge Home Discharge Time: <= 30 minutes Discharge Instructions DIET: Follow Instructions for: Heart Healthy Diet Activities you can perform: Regular-No Restrictions Follow up Referrals: PCP Follow-up Continued Medications: Estradiol (Estradiol) 1 Mg Tab 1 MG PO DAILY for Estrogen Supplements, #30 TAB 0 Refills Lisinopril (Lisinopril) 20 Mg Tab 20 MG PO DAILY, #30 TAB 0 Refills Medroxyprogesterone Acetate (Provera) 2.5 Mg Tab 2.5 MG PO DAILY for Uterine bleeding, #10 TAB Start day 16 Triamterene-Hydrochlorothiazide (Triamterene-Hydrochlorothiazide) 37.5-25 Mg Tab 1 TAB PO DAILY, #30 TAB 0 Refills Ladan Paul MD Nov 13, 2017 10:57
== END 2017-11-13 12:00 | disposition home or self-care (01) | DRG 641 ==
LOC: PHED 18:39 → PHEDA 21:11 → OBSVTOIN 23:56 → PHICU 11-12 00:02
PROVIDERS: ADMIT Hospitalist; ATTEND Hospitalist
PROC: 02HV33Z Insertion of Infusion Device into Superior Vena Cava, Percutaneous Approach (ICD-10-PCS; principal; 2017-11-11)
DX: E86.0 Dehydration (principal); I95.9 Hypotension, unspecified; R06.81 Apnea, not elsewhere classified; I10 Essential (primary) hypertension; G89.29 Other chronic pain; R07.9 Chest pain, unspecified; R74.0 Nonspecific elevation of levels of transaminase and lactic acid dehydrogenase [LDH]; K57.90 Diverticulosis of intestine, part unspecified, without perforation or abscess without bleeding; R00.1 Bradycardia, unspecified; R60.1 Generalized edema; M79.7 Fibromyalgia; M54.9 Dorsalgia, unspecified; R21 Rash and other nonspecific skin eruption; T40.2X5A Adverse effect of other opioids, initial encounter; Z85.820 Personal history of malignant melanoma of skin
CPT/HCPCS: 36556; 71045; 71275; 74174; 80053; 82550; 83605; 83690; 83735; 84100; 84484; 85025; 85610; 85730; 87641; 93005; 96361; 96374; 96375; J1170; J1200; J1650; J2405; J2930; J3475; J7030; J7050; Q9967